=== PATIENT | male | born 1945 | race Caucasian/White ===

== ENCOUNTER 2022-01-21 07:25 | Day surgery (SDC) | payer OTHER ==
[2022-01-16 16:19] VITALS: BMI 25.1
[2022-01-21] MEDS ORDERED: LIDOCAINE HCL/PF 2% SDV 5ML VIAL ONE (08:12)
[2022-01-21] MEDS ORDERED: PROPOFOL 80 ML ONE (08:12)
[2022-01-21 09:02] VITALS: RESP 18; TEMP 97.4
[2022-01-21 09:18] VITALS: BP 126/84; PULSE 84
== END 2022-01-21 09:30 | disposition home or self-care (01) ==
LOC: FASU-ENDO 07:25
PROVIDERS: ATTEND Internal Medicine Gastroenterology
PROC: 0DJD8ZZ Inspection of Lower Intestinal Tract, Via Natural or Artificial Opening Endoscopic (ICD-10-PCS; principal; 2022-01-21 08:33)
DX: Z12.11 Encounter for screening for malignant neoplasm of colon (principal); K64.1 Second degree hemorrhoids; Z85.038 Personal history of other malignant neoplasm of large intestine
CPT/HCPCS: 82962